=== PATIENT | male | born 1985 | race Two or more races ===

== ENCOUNTER 2024-11-28 21:33 | Inpatient (IN) | payer SELFPAY ==
[~2024-11-28] VITALS: Ht 162.6 cm; Wt 88.9 kg
[2024-11-28 22:26] LABS: CALCIUM, SERUM 8.3 mg/dL (8.5-10.1); CREATININE 1.3 mg/dL (0.6-1.3); POTASSIUM 4.3 mmol/L (3.5-5.1)
[2024-11-28 22:28] LABS: BASOPHILS % (AUTO) 0.5 % (0.0-2.0); EOSINOPHILS # (AUTO) 0.3 K/uL (0.0-0.7); EOSINOPHILS % (AUTO) 4.2 % (0.0-6.0); LYMPHOCYTES # (AUTO) 2.8 K/uL (0.8-4.8); LYMPHOCYTES % (AUTO) 34.3 % (20.0-44.0); MEAN CORPUSCULAR HEMOGLOBIN 27 PG (26.0-33.0); MEAN CORPUSCULAR HGB CONC 33 g/dl (31.0-36.0); MEAN CORPUSCULAR VOLUME 84 fL (80-96); MONOCYTES # (AUTO) 0.5 K/uL (0.1-1.30); MONOCYTES % (AUTO) 5.6 % (2.0-12.0); NEUTROPHILS # (AUTO) 4.5 K/uL (1.8-8.9); NEUTROPHILS % (AUTO) 55.4 % (43.0-81.0); PLATELET COUNT (AUTO) 403 K/uL (150-450); RED BLOOD CELL COUNT(AUTO) 2.24 MIL/uL (4.5-6.0); RED CELL DISTRIBUTION WIDTH 15.6 % (11.5-15.0); WHITE BLOOD COUNT (AUTO) 8.2 K/uL (4.3-11.0)
[2024-11-28 22:34] LABS: INR 0.97 (0.91-1.10); PROTHROMBIN TIME 10.3 SECS (9.2-11.1)
[2024-11-28 22:38] LABS: HEMATOCRIT 19 % (39-51); HEMOGLOBIN 6.1 g/dL (13.5-17.5)
[2024-11-28 23:02] LABS: EOSINOPHILS % (MANUAL) 1 % (0-4); LYMPHOCYTES % (MANUAL) 32 % (16-48); MONOCYTES % (MANUAL) 4 % (0-11.0); NEUTROPHILS % (MANUAL) 63 (42-76); PLATELET ESTIMATE ADEQUATE
[2024-11-28 23:03] LABS: ANISOCYTOSIS 1+
[2024-11-28] MEDS ORDERED: ACETAMINOPHEN 325 MG TABLET ONE (23:56)
[2024-11-28] MEDS: ACETAMINOPHEN 325 MG TABLET PO ONE (23:57)
[2024-11-29] VITALS (7 sets, daily range): BP systolic 121–124; BP diastolic 66–79; TEMP 98.2–98.5; O2SAT 98–100
[2024-11-29] MEDS ORDERED: ONDANSETRON HCL/PF 4 MG/2 ML VIAL IVP PRN (00:30)
[2024-11-29] MEDS ORDERED: Z GUARD REMEDY 4 OZ OINT TP PRN (00:30)
[2024-11-29] MEDS ORDERED: ACETAMINOPHEN 325 MG TABLET PO PRN (00:30)
[2024-11-29] MEDS ORDERED: MAG HYDROX/AL HYDROX/SIMETH 30 ML UDC PO PRN (00:30)
[2024-11-29] MEDS ORDERED: MAGNESIUM HYDROXIDE 30 ML UDC PO PRN (00:30)
[2024-11-29] MEDS: IV NS 0.9% 1,000 ML IV SCH (06:22)
[2024-11-29 07:59] LABS: BASOPHILS % (AUTO) 0.4 % (0.0-2.0); EOSINOPHILS # (AUTO) 0.3 K/uL (0.0-0.7); HEMATOCRIT 26 % (39-51); HEMOGLOBIN 8.4 g/dL (13.5-17.5); LYMPHOCYTES # (AUTO) 1.9 K/uL (0.8-4.8); LYMPHOCYTES % (AUTO) 24.1 % (20.0-44.0); MEAN CORPUSCULAR HEMOGLOBIN 27 PG (26.0-33.0); MEAN CORPUSCULAR HGB CONC 33 g/dl (31.0-36.0); MEAN CORPUSCULAR VOLUME 84 fL (80-96); MONOCYTES # (AUTO) 0.5 K/uL (0.1-1.30); MONOCYTES % (AUTO) 6.1 % (2.0-12.0); NEUTROPHILS # (AUTO) 5.2 K/uL (1.8-8.9); NEUTROPHILS % (AUTO) 65.4 % (43.0-81.0); PLATELET COUNT (AUTO) 331 K/uL (150-450); RED BLOOD CELL COUNT(AUTO) 3.07 MIL/uL (4.5-6.0); RED CELL DISTRIBUTION WIDTH 15.2 % (11.5-15.0)
[2024-11-29] MEDS ORDERED: IV NS 0.9% 1,000 ML IV PRN (08:05)
[2024-11-29 08:06] LABS: CALCIUM, SERUM 8.2 mg/dL (8.5-10.1); MAGNESIUM 2.1 mg/dL (1.8-2.4); PHOSPHORUS 3.4 mg/dL (2.5-4.9); POTASSIUM 3.9 mmol/L (3.5-5.1)
[2024-11-29] MEDS ORDERED: FERR-68 PO (08:43)
[2024-11-29] MEDS ORDERED: DOCU-275 PO (08:43)
[2024-11-29] MEDS ORDERED: MULT-594 PO (08:43)
[2024-11-29] MEDS ORDERED: OMEG1CAP40 PO (08:43)
== END 2024-11-29 13:42 | disposition home or self-care (01) | DRG 812 ==
LOC: ER 21:38 → TELE 11-29 03:14 → MED 11-29 04:21
PROVIDERS: ADMIT Nurse Practitioner Family; ATTEND Internal Medicine
PROC: 30233N1 Transfusion of Nonautologous Red Blood Cells into Peripheral Vein, Percutaneous Approach (ICD-10-PCS; principal; 2024-11-29)
DX: D64.9 Anemia, unspecified (principal); E66.9 Obesity, unspecified; Z68.32 Body mass index [BMI] 32.0-32.9, adult; K64.9 Unspecified hemorrhoids; Z98.890 Other specified postprocedural states; R73.9 Hyperglycemia, unspecified; D62 Acute posthemorrhagic anemia; D63.8 Anemia in other chronic diseases classified elsewhere
CPT/HCPCS: 36415; 80048-TC; 83735-TC; 84100-TC; 85025-TC; 85610-TC; 86850-TC; 87081-TC; A4223; G0378; J7030; J7040; P9016